=== PATIENT | male | born 1955 | race Caucasian/White ===

== ENCOUNTER → 2016-06-03 | Outpatient (CLI) | payer OTHER ==
[~2016-06-03] MED LIST: AMLO5TAB2 PO; CARV3.122 PO; CIPR250T27 PO; GLUT500T3 PO; HYDR-3144 PO; TAMS-11 PO; [UNRECOGNIZED DRUG - OTHER] PO; [UNRECOGNIZED DRUG - OTHER] PO; [UNRECOGNIZED DRUG - OTHER] PO; [UNRECOGNIZED DRUG - OTHER] PO
[2016-06-03 16:31] LABS: HEMOGLOBIN 16.7 g/dL (13.7-18.0)
[2016-06-03 16:42] LABS: ASPARTATE AMINO TRANSFERASE 27 U/L (15-37); BLOOD UREA NITROGEN 19 mg/dL (7-18)
== END | disposition home or self-care (01) ==
LOC: STAR 15:14
PROVIDERS: ATTEND Urology
DX: N40.1 Benign prostatic hyperplasia with lower urinary tract symptoms (principal)
CPT/HCPCS: 36415; 80053; 81003; 85025; 85610; 85730; 87086; 93005

== ENCOUNTER 2016-06-17 05:56 | Inpatient (IN) | payer OTHER ==
[~2016-06-17] VITALS: Ht 182.9 cm; Wt 117.1 kg
[2016-06-17] MEDS ORDERED: LACTATED RINGERS 1,000 ML IV SCH (06:13)
[2016-06-17] MEDS ORDERED: ROCURONIUM 10 MG/ML ONE (07:45)
[2016-06-17] MEDS ORDERED: PROPOFOL 10 MG/ML, 20ML ONE (07:45)
[2016-06-17] MEDS ORDERED: SUCCINYLCHOLINE 20 MG/ML, 10ML ONE (07:45)
[2016-06-17] MEDS ORDERED: CEFAZOLIN 1,000 MG ONE (07:45)
[2016-06-17] MEDS ORDERED: ONDANSETRON 2MG/ML, 2ML ONE (07:45)
[2016-06-17] MEDS ORDERED: DEXAMETHASONE 4 MG/ML, 5ML ONE (07:45)
[2016-06-17] MEDS ORDERED: MIDAZOLAM 1 MG/ML, 2ML ONE (07:46)
[2016-06-17] MEDS ORDERED: FENTANYL PF 250 MCG/5ML ONE (07:46)
[2016-06-17] MEDS ORDERED: PROMETHAZINE 25 MG/ML, 1ML IV PRN (08:30)
[2016-06-17] MEDS ORDERED: OXYcodone 5 MG/5 ML ORAL.SOL UDC PO PRN (08:30)
[2016-06-17] MEDS ORDERED: MIDAZOLAM 1 MG/ML, 2ML IV PRN (08:30)
[2016-06-17] MEDS ORDERED: FENTANYL PF 100 MCG/2ML IV PRN (08:30)
[2016-06-17] MEDS ORDERED: hydrALAzine 20 MG/ML, 1ML IV PRN (08:30)
[2016-06-17] MEDS ORDERED: MEPERIDINE/PF 25MG/0.5ML IVPush PRN (08:30)
[2016-06-17] MEDS ORDERED: ACETAMINOPHEN 325 MG TABLET PO PRN (08:30)
[2016-06-17] MEDS ORDERED: LABETALOL 5MG/ML, 20ML IV PRN (08:30)
[2016-06-17] MEDS ORDERED: ONDANSETRON 2MG/ML, 2ML IVPush PRN (08:30)
[2016-06-17] MEDS ORDERED: METOCLOPRAMIDE 5 MG/ML, 2ML IV PRN (08:30)
[2016-06-17] MEDS ORDERED: HYDROmorphone 1 MG/ML, 1ML IV PRN (08:30)
[2016-06-17] MEDS ORDERED: FENTANYL PF 100 MCG/2ML ONE (09:30)
[2016-06-17] MEDS ORDERED: ACETAMINOPHEN 325 MG TABLET ONE (09:30)
[2016-06-17] MEDS ORDERED: ACETAMINOPHEN 650 MG/20.3 ML UDC ONE (09:30)
[2016-06-17] MEDS ORDERED: OXYcodone 5 MG/5 ML ORAL.SOL UDC ONE (09:30)
[2016-06-17 10:40] VITALS: BP 143/87
[2016-06-17] MEDS ORDERED: ONDANSETRON 2MG/ML, 2ML IV PRN (11:00)
[2016-06-17] MEDS ORDERED: OPIUM/BELLADONNA SUPP.RECT 16.2-60 MG PR PRN (11:00)
[2016-06-17] MEDS: D5%-LACTATED RINGERS 1,000 ML IV SCH ×2 (12:31→22:16)
[2016-06-17 14:01] VITALS: BP 143/84
[2016-06-17] MEDS: CEFAZOLIN PMX 1GM/50ML 50 ML IV SCH ×2 (17:16→23:45)
[2016-06-17 18:57] VITALS: BP 146/80
[2016-06-18 03:26] VITALS: BP 144/74
[2016-06-18] MEDS: D5%-LACTATED RINGERS 1,000 ML IV SCH (05:35)
[2016-06-18 05:37] LABS: HEMOGLOBIN 16.1 g/dL (13.7-18.0)
[2016-06-18 05:54] LABS: BLOOD UREA NITROGEN 14 mg/dL (7-18)
[2016-06-18 07:55] VITALS: BP 154/68
[2016-06-18 11:45] VITALS: BP 152/82
== END 2016-06-18 12:09 | disposition home or self-care (01) | DRG 714 ==
LOC: OUT 05:56 → 4NOR 10:34 → OUT 10:51
PROVIDERS: ADMIT Urology; ATTEND Urology
PROC: 0VT08ZZ Resection of Prostate, Via Natural or Artificial Opening Endoscopic (ICD-10-PCS; principal; 2016-06-17 08:00)
DX: N40.1 Benign prostatic hyperplasia with lower urinary tract symptoms (principal); R32 Unspecified urinary incontinence; I10 Essential (primary) hypertension; R39.11 Hesitancy of micturition; R33.8 Other retention of urine; R39.16 Straining to void; R39.12 Poor urinary stream
CPT/HCPCS: 36415; 80048; 85014; 85018; 88305; J0690; J1100; J2250; J2405; J2704; J3010; C1769; J0330; J7120; J7121